=== PATIENT | female | born 1960 | race Caucasian/White ===

== ENCOUNTER 2016-09-10 17:23 | Emergency (ER) | payer OTHER ==
[~2016-09-10] VITALS: Ht 167.6 cm; Wt 100.0 kg
[~2016-09-10 17:23] MED LIST: NAPR500 PO; Z.0.NO CURRENT MEDS
[2016-09-10 17:29] VITALS: BP 214/98; PULSE 69; RESP 20; TEMP 97.9; O2SAT 98
[2016-09-10] MEDS ORDERED: SIMV40TA PO (17:35)
[2016-09-10] MEDS ORDERED: AMLO10TA2 PO (17:35)
[2016-09-10 17:38] VITALS: BP 181/89; PULSE 75; RESP 18; O2SAT 97
--- NOTE | 2016-09-10 17:40 | PD ---
HPI Chief Complaint: Fall Time Seen by Provider: 17:37 Travel History International Travel<30 days: No Contact w/Intl Traveler<30days: No Traveled to known affect area: No History of Present Illness HPI 56-year-old female presents to the emergency department via EMS for evaluation of right ankle pain. She states she tripped and fell promptly one-step just prior to arrival. She stepped down with her right foot and the rug slid causing her to fall forward. Patient denies any other injury. No head injury or LOC. No neck pain or back pain. No chest pain or abdominal pain. No nausea or vomiting. She does report a history of hyperlipidemia and hypertension. Her blood pressure is elevated and the emergency department. However, she states she takes her blood pressure medication night and has not had any today. She denies any associated symptoms. Patient rates pain in the right ankle 8/10. Patient denies any other complaints at this time. PFSH Past Medical History Cardiovascular Problems: Yes High Cholesterol: Yes Hypertension: Yes Immunizations Current: Yes Tetanus Vaccination: Unknown ?: Not Past Surgical History Surgical History: No Previous Surgery Social History Alcohol Use: Yes (SOCIALLY) Tobacco Use: No Substance Use: No Allergies-Medications (Allergen,Severity, Reaction): Coded Allergies: Codeine (Verified Allergy, Mild, 09/10/16) Sulfa (Verified Allergy, Mild, 09/10/16) Reported Meds & Prescriptions Reported Meds & Active Scripts Active Reported Simvastatin 40 Mg Tab 40 Mg PO HS Amlodipine (Amlodipine Besylate) 10 Mg Tab 10 Mg PO DAILY Review of Systems Except as stated in HPI: all other systems reviewed are Neg Physical Exam Narrative GENERAL: Well-nourished, well-developed female patient, afebrile. SKIN: Focused skin assessment warm/dry. HEAD: Normocephalic. Atraumatic. EYES: No scleral icterus. No injection or drainage. NECK: Supple, trachea midline. No JVD or lymphadenopathy. CARDIOVASCULAR: Regular rate and rhythm without murmurs, gallops, or rubs. Right pedal pulses 2+. Capillary refill is less than 2 seconds to the digits of the right foot. RESPIRATORY: Breath sounds equal bilaterally. No accessory muscle use. Lungs sounds are clear to auscultation. GASTROINTESTINAL: Abdomen soft, non-tender, nondistended. MUSCULOSKELETAL: No cyanosis, or edema. Patient has tenderness over right anterior and right medial ankle. No Achilles tendon deformity or tenderness. Patient has full sensation to the distal right lower extremity. BACK: Nontender without obvious deformity. No CVA tenderness. No midline spinal tenderness. Data Data Last Documented VS Vital Signs Date Time Temp Pulse Resp B/P Pulse Ox O2 Delivery O2 Flow Rate FiO2 09/10/16 17:38 75 18 181/89 97 Room Air 09/10/16 17:29 97.9 Orders Ankle, Complete ([id number]) (09/10/16 ) Acetamin-Hydrocod 325-10 Mg ([place] 10-32 (09/10/16 17:45) MDM Medical Decision Making Medical Screen Exam Complete: Yes Emergency Medical Condition: Yes Medical Record Reviewed: Yes Interpretation(s) X-ray right ankle - CONCLUSION: Lateral soft tissue swelling. No fracture seen. Differential Diagnosis Sprain versus contusion versus fracture versus dislocation Narrative Course 56-year-old female presents to the emergency department for evaluation right ankle pain after she tripped and fell. She has no other complaints. X-ray of the right ankle is ordered and pending. X-ray of the right ankle shows no fracture. Patient is placed in Rowdy bandage and crutches. She is instructed to ice and elevate. She'll be given a prescription for ibuprofen. She is encouraged to follow orthopedist if pain continues or worsens. She verbalizes agreement and understanding. The patient was discharged in stable condition with instructions, including return instructions and follow up instructions. Diagnosis Primary Impression: Right ankle sprain Qualified Code: S93.401A - Sprain of right ankle, unspecified ligament, initial encounter Referrals: Primary Care Physician call for appointment Patient Instructions: Ankle Sprain (ED), General Instructions Departure Forms: Tests/Procedures, Work Release Enter return to work date: Sep 13, 2016 Additional Instructions: Elevate. Ice for 20 minutes 4-5 times daily. Wear Rowdy bandage use crutches as needed for support. Take ibuprofen as instructed as needed with food for pain. Follow-up with your primary care physician. Return to the emergency department for any acute worsening of symptoms. Med/Other Pt SpecificInfo: Prescription(s) given Scripts Ibuprofen 600 Mg [id number] Mg PO TID PRN (PAIN SCALE 1 TO 10) #21 TAB Ref 0 Prov:Ines Smith 09/10/16 Disposition: 01 DISCHARGE HOME Condition: Stable Ines Smith Sep 10, 2016 17:40
[2016-09-10] MEDS ORDERED: ACETAMINOPHEN/HYDROcodone 325 MG/10 MG TAB PO ONE (17:45)
--- NOTE | 2016-09-10 18:11 | RADRPT ---
EXAM DATE/TIME: 09/10/2016 18:02 [facility] COMPARISON: No previous studies available for comparison. INDICATIONS : Patient slipped on a rug this afternoon. Pain on top of her foot and anterior ankle. MEDICAL HISTORY : None. SURGICAL HISTORY : None. ENCOUNTER: Initial ACUITY: 1 day PAIN SCORE: 8/10 LOCATION: Right Anterior ankle and top of foot. FINDINGS: There is mild soft tissue swelling about the lateral aspect of the ankle. The osseous structures are in normal alignment. No fracture seen. Ankle mortise is intact. There is a large plantar calcanea l spur and a small retrocalcaneal spur. No radiopaque foreign bodies. CONCLUSION: Lateral soft tissue swelling. No fracture seen. Bryan Gomez MD on September 10, 2016 at 18:08 Board Certified Radiologist. This report was verified electronically.
[2016-09-10] MEDS ORDERED: IBUP-232 PO (18:17)
== END 2016-09-10 18:45 | disposition home or self-care (01) ==
LOC: NEPD 17:23
DX: S93.401A Sprain of unspecified ligament of right ankle, initial encounter (principal); W01.0XXA Fall on same level from slipping, tripping and stumbling without subsequent striking against object, initial encounter
CPT/HCPCS: 73610; 99283; E0113